=== PATIENT | female | born 1955 | race Caucasian/White ===

== ENCOUNTER 2020-05-07 08:00 | Inpatient (IN) | payer OTHER, MEDICARE ==
[2020-05-07] MEDS ORDERED: ACETAMINOPHEN 500 MG TABLET (FP) PO ONE (08:08)
[2020-05-07] MEDS ORDERED: ACETAMINOPHEN 500 MG TABLET (FP) ONE (08:12)
[2020-05-07 09:59] LABS: BASO % 0.7 % (0-2.0); EOS % 0.2 % (0-4.5); HEMATOCRIT 39.6 % (32.4-45.2); HEMOGLOBIN 13.3 GM/dl (10.7-15.3); LYMPH % 10.1 % (8-40); MCH 31.2 pg (25.7-33.7); MCHC 33.5 g/dl (32.0-36.0); MEAN PLT VOLUME 7.7 fl (7.5-11.1); MONO % 4.3 % (3.8-10.2); NEUT % 84.7 % (42.8-82.8); PLATELET COUNT 396 K/MM3 (134-434); RBC 4.25 M/mm3 (3.60-5.2); WHITE BLOOD COUNT 16.1 K/mm3 (4.0-10.8)
[2020-05-07 10:08] LABS: ACTIVATED PTT 25.7 SECONDS (25.2-36.5)
[2020-05-07 10:12] LABS: INR 1.1 (0.82-1.09); PROTHROMBIN TIME (PATIENT) 12.2 SEC (10.2-13.0)
[2020-05-07 10:45] LABS: EPITHELIAL CELLS MODERATE /hpf
[2020-05-07 10:46] LABS: ALBUMIN 4.1 g/dl (3.4-5.0); BILIRUBIN,TOTAL 0.6 mg/dl (0.2-1); CALCIUM 9.3 mg/dl (8.5-10); CREATININE 0.5 mg/dl (0.55-1.3); POTASSIUM 3.5 mmol/L (3.5-5.1); TOT PROT 7.3 g/dl (6.4-8.2)
[2020-05-07] MEDS: NICOTINE 21 MG/24 HOURS TOPICAL PATCH TD SCH ×2 (11:38→22:23)
[2020-05-07 15:13] VITALS: BMI 23.6
[2020-05-07] MEDS ORDERED: chlordiazePOXIDE HCL 25 MG CAPSULE PO PRN (15:30)
[2020-05-07] MEDS ORDERED: HYDROmorphone HCl 2 MG/ML VIAL IVPB PRN (15:58)
[2020-05-07] MEDS: ACETAMINOPHEN 325 MG TABLET (FP) PO PRN (17:48)
[2020-05-07] MEDS: METOPROLOL TARTRATE 50 MG TABLET (FP) PO SCH (21:52)
[2020-05-07] MEDS: HEPARIN NA (PORCINE) 5,000 UNITS/ML 1ML VIAL SQ SCH (21:53)
[2020-05-07] MEDS ORDERED: METOPROLOL TARTRATE 25 MG TABLET (FP) PO SCH (22:00)
[2020-05-07] MEDS: traMADol HCL 50 MG TABLET PO PRN (23:19)
[2020-05-08] MEDS: ACETAMINOPHEN 325 MG TABLET (FP) PO PRN ×2 (02:05→21:46)
[2020-05-08 09:33] LABS: ALBUMIN 3.2 g/dl (3.4-5.0); CALCIUM 8.8 mg/dL (8.5-10.1); MAGNESIUM 1.8 mg/dL (1.8-2.4)
[2020-05-08 09:35] LABS: CREATININE 0.5 mg/dL (0.55-1.3)
[2020-05-08 09:36] LABS: BASO % 0.8 % (0-2.0); BILIRUBIN,TOTAL 0.6 mg/dL (0.2-1); EOS % 1.6 % (0-4.5); HEMATOCRIT 36.1 % (32.4-45.2); HEMOGLOBIN 12.2 GM/dL (10.7-15.3); LYMPH % 16.3 % (8-40); MCH 31.3 pg (25.7-33.7); MCHC 33.9 g/dl (32.0-36.0); MEAN CELL VOLUME 92.4 fl (80-96); MEAN PLT VOLUME 8.1 fl (7.5-11.1); MONO % 5.7 % (3.8-10.2); NEUT % 75.6 % (42.8-82.8); PLATELET COUNT 323 K/MM3 (134-434); RBC 3.91 M/mm3 (3.60-5.2); RDW 14.6 % (11.6-15.6); TOT PROT 6.6 g/dl (6.4-8.2); WHITE BLOOD COUNT 11.9 K/mm3 (4.0-10.0)
[2020-05-08] MEDS: HEPARIN NA (PORCINE) 5,000 UNITS/ML 1ML VIAL SQ SCH ×2 (09:44→21:38)
[2020-05-08] MEDS: METOPROLOL TARTRATE 50 MG TABLET (FP) PO SCH ×2 (09:44→21:38)
[2020-05-08] MEDS: PANTOPRAZOLE 40 MG TABLET PO SCH (09:44)
[2020-05-08] MEDS: FOLIC ACID 1 MG TABLET (FP) PO SCH (09:44)
[2020-05-08] MEDS: amLODIPine BESYLATE 10 MG TABLET (FP) PO SCH (09:44)
[2020-05-08] MEDS: THIAMINE HCL 100 MG TABLET (FP) PO SCH (09:44)
[2020-05-08] MEDS: NICOTINE 21 MG/24 HOURS TOPICAL PATCH TD SCH (09:44)
[2020-05-08] MEDS: MULTIVITAMINS (DAILY MVI) TABLET (FP) PO SCH (09:44)
[2020-05-08 09:54] LABS: POTASSIUM 3.6 mmol/L (3.5-5.1)
[2020-05-08] MEDS ORDERED: NICOTINE 21 MG/24 HOURS TOPICAL PATCH TD SCH (10:00)
[2020-05-08] MEDS ORDERED: amLODIPine BESYLATE 5 MG TABLET (FP) PO SCH (10:00)
[2020-05-08] MEDS: traMADol HCL 50 MG TABLET PO PRN (11:23)
[2020-05-08 11:38] LABS: INR 0.97 (0.83-1.09)
[2020-05-09] MEDS: ACETAMINOPHEN 325 MG TABLET (FP) PO PRN ×2 (07:53→20:02)
[2020-05-09] MEDS: METOPROLOL TARTRATE 50 MG TABLET (FP) PO SCH ×2 (09:32→21:39)
[2020-05-09] MEDS: PANTOPRAZOLE 40 MG TABLET PO SCH (09:33)
[2020-05-09] MEDS: NICOTINE 21 MG/24 HOURS TOPICAL PATCH TD SCH (09:33)
[2020-05-09] MEDS: FOLIC ACID 1 MG TABLET (FP) PO SCH (09:33)
[2020-05-09] MEDS: amLODIPine BESYLATE 10 MG TABLET (FP) PO SCH (09:33)
[2020-05-09] MEDS: THIAMINE HCL 100 MG TABLET (FP) PO SCH (09:33)
[2020-05-09] MEDS: MULTIVITAMINS (DAILY MVI) TABLET (FP) PO SCH (09:33)
[2020-05-09] MEDS ORDERED: TRANEXAMIC ACID 1000 MG/10 ML VIAL ONE (13:33)
[2020-05-09] MEDS ORDERED: ceFAZolin SODIUM 1 GM VIAL ONE (13:33)
[2020-05-09] MEDS ORDERED: BUPIVACAINE LIPOSOME/PF (EXPAREL) 266 MG/20 ML VIAL ONE (14:27)
[2020-05-09] MEDS ORDERED: MIDAZOLAM HCL 2 MG/2 ML SINGLE DOSE VIAL ONE ×2 (14:27→15:02)
[2020-05-09] MEDS ORDERED: BUPIVACAINE HCL/PF 0.5% (5 MG/ML) 30 ML VIAL IJ ONE (14:27)
[2020-05-09] MEDS ORDERED: LACTATED RINGERS SOLUTION 1,000 ML IV SCH ×3 (15:30→17:21)
[2020-05-09] MEDS ORDERED: PROPOFOL 20 ML ONE ×8 (15:31→15:32)
[2020-05-09] MEDS ORDERED: PROMETHAZINE HCL 25 MG/1 ML VIAL IVPUSH PRN (17:02)
[2020-05-09] MEDS ORDERED: oxyCODONE HCL 5 MG TABLET PO PRN (17:02)
[2020-05-09] MEDS ORDERED: ONDANSETRON 4 MG/2 ML VIAL IVPUSH PRN (17:02)
[2020-05-09] MEDS ORDERED: ACETAMINOPHEN 325 MG TABLET (FP) PO PRN (17:21)
[2020-05-09] MEDS: traMADol HCL 50 MG TABLET PO PRN (20:01)
[2020-05-09] MEDS ORDERED: HYDROmorphone HCl 2 MG/ML VIAL IVPB PRN (22:21)
[2020-05-09] MEDS: CEFAZOLIN 1 GM/D5W 1 GM/50 ML BAG IVPB SCH (22:50)
[2020-05-09] MEDS ORDERED: CEFAZOLIN 1 GM/D5W 1 GM/50 ML BAG IVPB SCH (23:00)
[2020-05-10] MEDS: oxyCODONE HCL 5 MG TABLET PO PRN ×3 (05:39→18:13)
[2020-05-10] MEDS: ACETAMINOPHEN 325 MG TABLET (FP) PO PRN (05:40)
[2020-05-10] MEDS: CEFAZOLIN 1 GM/D5W 1 GM/50 ML BAG IVPB SCH (06:12)
[2020-05-10 08:15] LABS: HEMATOCRIT 32.8 % (32.4-45.2); HEMOGLOBIN 10.9 GM/dl (10.7-15.3); MCH 30.7 pg (25.7-33.7); MCHC 33.4 g/dl (32.0-36.0); MEAN PLT VOLUME 7.8 fl (7.5-11.1); PLATELET COUNT 287 K/MM3 (134-434); RBC 3.56 M/mm3 (3.60-5.2); RDW 13.2 % (11.6-15.6); WHITE BLOOD COUNT 13.9 K/mm3 (4.0-10.8)
[2020-05-10 08:22] LABS: BILIRUBIN,TOTAL 0.7 mg/dl (0.2-1); CALCIUM 8.7 mg/dl (8.5-10); CREATININE 0.5 mg/dl (0.55-1.3); MAGNESIUM 1.6 mg/dL (1.8-2.4); POTASSIUM 3.7 mmol/L (3.5-5.1); TOT PROT 6.1 g/dl (6.4-8.2)
[2020-05-10] MEDS ORDERED: HYDROmorphone HCL/PF 1 MG/ML VIAL IVPB PRN (08:28)
[2020-05-10 08:58] LABS: ADD RBC MORPHOLOGY YES
[2020-05-10] MEDS: THIAMINE HCL 100 MG TABLET (FP) PO SCH (10:08)
[2020-05-10] MEDS: NICOTINE 21 MG/24 HOURS TOPICAL PATCH TD SCH (10:08)
[2020-05-10] MEDS: MULTIVITAMINS (DAILY MVI) TABLET (FP) PO SCH (10:08)
[2020-05-10] MEDS: METOPROLOL TARTRATE 50 MG TABLET (FP) PO SCH ×2 (10:08→21:28)
[2020-05-10] MEDS: amLODIPine BESYLATE 10 MG TABLET (FP) PO SCH (10:08)
[2020-05-10] MEDS: PANTOPRAZOLE 40 MG TABLET PO SCH (10:08)
[2020-05-10] MEDS: FOLIC ACID 1 MG TABLET (FP) PO SCH (10:09)
[2020-05-10 10:25] LABS: PLATELET ESTIMATE ADEQUATE
[2020-05-10] MEDS ORDERED: MAGNESIUM SULF 50% (8.12 MEQ/2 ML-1 GM VIAL) IVPB ONE (10:36)
[2020-05-10] MEDS ORDERED: MAGNESIUM SULFATE IN WATER 2 GM/50 ML IVPB IVPB ONE (10:45)
[2020-05-11] MEDS: traMADol HCL 50 MG TABLET PO PRN (06:39)
[2020-05-11 08:23] LABS: ALBUMIN 2.8 g/dl (3.4-5.0); BASO % 0.4 % (0-2.0); BILIRUBIN,TOTAL 0.6 mg/dl (0.2-1); CALCIUM 8.7 mg/dl (8.5-10); CREATININE 0.4 mg/dl (0.55-1.3); EOS % 1.1 % (0-4.5); HEMATOCRIT 31.6 % (32.4-45.2); HEMOGLOBIN 10.5 GM/dl (10.7-15.3); LYMPH % 11.2 % (8-40); MAGNESIUM 1.9 mg/dL (1.8-2.4); MCH 30.6 pg (25.7-33.7); MCHC 33.3 g/dl (32.0-36.0); MEAN PLT VOLUME 7.4 fl (7.5-11.1); MONO % 7.6 % (3.8-10.2); NEUT % 79.7 % (42.8-82.8); PLATELET COUNT 281 K/MM3 (134-434); RBC 3.44 M/mm3 (3.60-5.2); RDW 13.3 % (11.6-15.6); WHITE BLOOD COUNT 11.2 K/mm3 (4.0-10.8)
[2020-05-11] MEDS: FOLIC ACID 1 MG TABLET (FP) PO SCH (09:27)
[2020-05-11] MEDS: NICOTINE 21 MG/24 HOURS TOPICAL PATCH TD SCH (09:28)
[2020-05-11] MEDS: METOPROLOL TARTRATE 50 MG TABLET (FP) PO SCH (09:28)
[2020-05-11] MEDS: MULTIVITAMINS (DAILY MVI) TABLET (FP) PO SCH (09:28)
[2020-05-11] MEDS: amLODIPine BESYLATE 10 MG TABLET (FP) PO SCH (09:28)
[2020-05-11] MEDS: PANTOPRAZOLE 40 MG TABLET PO SCH (09:28)
[2020-05-11] MEDS: THIAMINE HCL 100 MG TABLET (FP) PO SCH (09:28)
[2020-05-11 09:57] VITALS: BP 134/77; PULSE 94; TEMP 99.1
== END 2020-05-11 11:15 | DRG 494 ==
LOC: FER 08:00 → FM/S 09:37
PROVIDERS: ADMIT Internal Medicine; ATTEND Nurse Practitioner Acute Care
PROC: 0QSH04Z Reposition Left Tibia with Internal Fixation Device, Open Approach (ICD-10-PCS; 2020-05-09)
PROC: 0QSK04Z Reposition Left Fibula with Internal Fixation Device, Open Approach (ICD-10-PCS; principal; 2020-05-09 15:43)
DX: S82.852A Displaced trimalleolar fracture of left lower leg, initial encounter for closed fracture (principal); I10 Essential (primary) hypertension; E78.5 Hyperlipidemia, unspecified; F10.10 Alcohol abuse, uncomplicated; D72.829 Elevated white blood cell count, unspecified; F17.210 Nicotine dependence, cigarettes, uncomplicated; W10.9XXA Fall (on) (from) unspecified stairs and steps, initial encounter; Y93.89 Activity, other specified; Y92.098 Other place in other non-institutional residence as the place of occurrence of the external cause; Y99.8 Other external cause status
CPT/HCPCS: 36415; 71045-TC-FY; 73590-TC-LT-FY; 73610-TC-LT-FY; 73630-TC-LT; 73700-TC-RT; 80053; 81003; 81015; 83735; 85025; 85610; 85730; 86850; 86900; 86901; 87086; 93005; 94760; 97116-GP; 97162-GP; 99285-25; C9803; J1644; U0003

== ENCOUNTER 2021-05-22 10:59 | Inpatient (IN) | payer OTHER, MEDICARE ==
[2021-05-22] MEDS ORDERED: SODIUM CHLORIDE IV ONE (11:14)
[2021-05-22] MEDS ORDERED: ACETAMINOPHEN INJECTION 100 ML IVPB ONE (11:16)
[2021-05-22] MEDS ORDERED: VANCOMYCIN 1 GM in D5W (PRE-DOCKED) 1,000 MG/250 ML IVPB ONE (11:21)
[2021-05-22] MEDS ORDERED: PIPERACILLIN/TAZOB 4.5 GM 4.5 GM in DEXTROSE 5%-WATER 100 ML IVPB ONE (11:21)
[2021-05-22] MEDS ORDERED: ACETAMINOPHEN 1000 MG/100 ML BAG IVPB ONE ×3 (11:21→21:32)
[2021-05-22] MEDS ORDERED: CEFTRIAXONE 1 GM in DEXTROSE 5%-WATER - 100 ML IVPB ONE ×2 (11:23→11:24)
[2021-05-22] MEDS ORDERED: AZITHROMYCIN IVPB 500 MG in DEXTROSE 5%-WATER - 250 ML IVPB ONE ×2 (11:23→11:24)
[2021-05-22] MEDS ORDERED: PANTOPRAZOLE SODIUM 40 MG VIAL IVPUSH ONE (11:34)
[2021-05-22] MEDS ORDERED: OCTREOTIDE ACETATE 50 MCG/1 ML - 1 ML VIAL IVPUSH ONE (11:35)
[2021-05-22 11:52] LABS: VENOUS BASE EXCESS -3.1 mmol/L (-2-2); VENOUS O2 SATURATION 29.3 % (70-80); VENOUS PCO2 30.7 mmHg (38-52); VENOUS PH 7.432 (7.310-7.410)
[2021-05-22] MEDS ORDERED: CEFTRIAXONE 1 GM/50 ML BAG ONE (11:52)
[2021-05-22] MEDS ORDERED: PANTOPRAZOLE SODIUM 40 MG VIAL ONE ×2 (11:52→15:51)
[2021-05-22] MEDS ORDERED: OCTREOTIDE ACETATE 500 MCG/1 ML - 1 ML VIAL ONE (11:53)
[2021-05-22 12:07] LABS: HEMATOCRIT 42.1 % (32.4-45.2); HEMOGLOBIN 14.5 GM/dL (10.7-15.3); MCH 32.8 pg (25.7-33.7); MCHC 34.5 g/dl (32.0-36.0); MEAN CELL VOLUME 95.1 fl (80-96); MEAN PLT VOLUME 9.4 fl (7.5-11.1); RBC 4.42 M/mm3 (3.60-5.2); RDW 14.3 % (11.6-15.6)
[2021-05-22 12:17] LABS: INR 1.25 (0.83-1.09); PROTHROMBIN TIME (PATIENT) 14.4 SEC (9.7-13.0)
[2021-05-22 12:19] LABS: ACTIVATED PTT 32.3 SECONDS (25.2-36.5)
[2021-05-22 12:37] LABS: PLATELET COUNT 85 10^3/uL (134-434); WHITE BLOOD COUNT 1.2 K/mm3 (4.0-10.0)
[2021-05-22 12:51] LABS: EPI CELLS 27 /uL (0-25.1); HYALINE CASTS 8 /uL (0-3.1); URINE APPEARANCE CLOUDY; URINE BACTERIA >9,000 /uL (0-1359); URINE BILIRUBIN 1+ (NEGATIVE); URINE COLOR DK YELLOW; URINE GLUCOSE (UA) NEGATIVE (NEGATIVE); URINE KETONE 1+ (NEGATIVE); URINE LEUK ESTERASE NEGATIVE (NEGATIVE); URINE NITRITE NEGATIVE (NEGATIVE); URINE PROTEIN 3+ (NEGATIVE); URINE RBC 24 /uL (0-23.9); URINE WBC 8 /uL (0-25.8)
[2021-05-22] MEDS ORDERED: AZITHROMYCIN IVPB 500 MG/250 ML BAG IVPB ONE (12:55)
[2021-05-22 13:05] LABS: LACTIC ACID 5.8 mmol/L (0.4-2.0)
[2021-05-22] MEDS ORDERED: ONDANSETRON 4 MG/2 ML VIAL IVPUSH ONE (13:14)
[2021-05-22 13:49] LABS: CALCIUM 8.8 mg/dL (8.5-10.1)
[2021-05-22 13:50] LABS: ALBUMIN 2.7 g/dl (3.4-5.0); BLOOD UREA NITROGEN 20.4 mg/dL (7-18)
[2021-05-22 13:53] LABS: CREATININE 1.2 mg/dL (0.55-1.3)
[2021-05-22 13:55] LABS: TOT PROT 6.2 g/dl (6.4-8.2)
[2021-05-22] MEDS: KCL 10 MEQ IVPB 10 MEQ/100 ML INFUS.BAG IVPB SCH ×3 (14:30→17:59)
[2021-05-22] MEDS ORDERED: SODIUM CHLORIDE 1,000 ML IV STA (15:24)
[2021-05-22] MEDS ORDERED: ACETAMINOPHEN 1000 MG/100 ML BAG IVPB PRN (15:26)
[2021-05-22 15:58] LABS: HEMATOCRIT 38.7 % (32.4-45.2); HEMOGLOBIN 13.3 GM/dL (10.7-15.3); MCH 32.7 pg (25.7-33.7); MCHC 34.3 g/dl (32.0-36.0); MEAN CELL VOLUME 95.3 fl (80-96); MEAN PLT VOLUME 8.8 fl (7.5-11.1); PLATELET COUNT 55 10^3/uL (134-434); RBC 4.06 M/mm3 (3.60-5.2); RDW 14.4 % (11.6-15.6)
[2021-05-22 16:09] LABS: MAGNESIUM 1.1 mg/dL (1.8-2.4)
[2021-05-22 16:18] LABS: WHITE BLOOD COUNT 0.9 K/mm3 (4.0-10.0)
[2021-05-22] MEDS ORDERED: MAGNESIUM SULF 50% (8.12 MEQ/2 ML-1 GM VIAL) IVPB ONE (16:23)
[2021-05-22] MEDS ORDERED: PANTOPRAZOLE SODIUM 80 MG in SODIUM CHLORIDE 100 ML IVPB SCH (16:30)
[2021-05-22] MEDS ORDERED: SODIUM CHLORIDE 1,000 ML IV SCH (16:45)
[2021-05-22] MEDS ORDERED: RAPID SEQUENCE INTUBATION KIT NR ONE (17:07)
[2021-05-22] MEDS ORDERED: KCL 10 MEQ IVPB 10 MEQ/100 ML INFUS.BAG IVPB ONE (17:46)
[2021-05-22] MEDS ORDERED: MAGNESIUM SULFATE IN WATER 2 GM/50 ML IVPB IVPB ONE (17:46)
[2021-05-22] MEDS ORDERED: PIPERACILLIN/TAZOB 3.375 GM 3.375 GM in DEXTROSE 5%-WATER - 50 ML IVPB SCH (18:00)
[2021-05-22] MEDS ORDERED: PROPOFOL 1,000,000 MCG/100 ML VIAL IVPB SCH (18:00)
[2021-05-22] MEDS ORDERED: ROCURONIUM BROMIDE 50 MG/5 ML VIAL IV ONE (18:00)
[2021-05-22] MEDS ORDERED: ETOMIDATE 40 MG/20 ML VIAL IVPUSH ONE (18:00)
[2021-05-22] MEDS ORDERED: FENTANYL NS IVPB 500 MCG/100 ML BAG IVPB SCH (18:00)
[2021-05-22] MEDS ORDERED: PROPOFOL 0 MCG/0 ML VIAL ONE (18:39)
[2021-05-22] MEDS ORDERED: FENTANYL NS IVPB 500 MCG/100 ML BAG IVPB ONE (18:39)
[2021-05-22] MEDS ORDERED: PIPERACILLIN/TAZOB 3.375 GM 3.375 GM/50 ML BAG IVPB ONE (18:39)
[2021-05-22] MEDS ORDERED: LACTATED RINGERS SOLUTION 1000 ML INFUS.BAG IV ONE (18:45)
[2021-05-22] MEDS: FENTANYL NS IVPB 500 MCG/100 ML BAG IVPB SCH (20:00)
[2021-05-22 20:05] LABS: LACTIC ACID 6.1 mmol/L (0.4-2.0)
[2021-05-22] MEDS: NOREPINEPHRINE D5W PREMIX 16,000 MCG/500 ML BAG IVPB SCH (20:30)
[2021-05-22 21:05] LABS: PLATELET ESTIMATE MOD DECREASED
[2021-05-22] MEDS: CHLORHEXIDINE GLUCONATE 4% CLEANSER FOR DECOLONIZATION TP SCH (22:00)
[2021-05-22] MEDS: LACTATED RINGERS SOLUTION 1,000 ML/1,000 ML INFUS.BAG IV SCH (22:00)
[2021-05-22] MEDS: MUPIROCIN 2% TOPICAL OINTMENT FOR DECOLONIZATION NS SCH (22:00)
[2021-05-22] MEDS ORDERED: MIDAZOLAM IN 0.9 % SOD.CHLORID 1 MG/1 ML PLAST..BAG ONE (22:07)
[2021-05-22] MEDS: MIDAZOLAM IN 0.9 % SOD.CHLORID 100 MG/100 ML PLAST..BAG IVPB SCH (22:20)
[2021-05-22 22:37] LABS: HEMATOCRIT 35.5 % (32.4-45.2); HEMOGLOBIN 12.1 GM/dL (10.7-15.3); MCH 33.2 pg (25.7-33.7); MCHC 34.1 g/dl (32.0-36.0); MEAN CELL VOLUME 97.6 fl (80-96); MEAN PLT VOLUME 9.6 fl (7.5-11.1); PLATELET COUNT 51 10^3/uL (134-434); RBC 3.64 M/mm3 (3.60-5.2); RDW 14.8 % (11.6-15.6)
[2021-05-22 22:45] LABS: WHITE BLOOD COUNT 1.2 K/mm3 (4.0-10.0)
[2021-05-22 22:52] LABS: CHLORIDE 105 mmol/L (98-107); SODIUM 138 mmol/L (136-145)
[2021-05-22 22:54] LABS: GLUCOSE,RANDOM 57 mg/dL (74-106)
[2021-05-22 22:55] LABS: BLOOD UREA NITROGEN 22.7 mg/dL (7-18); CO2 20 mmol/L (21-32); MAGNESIUM 1.6 mg/dL (1.8-2.4)
[2021-05-22 22:57] LABS: SGPT/ALT 45 U/L (13-61)
[2021-05-22 22:58] LABS: CREATININE 1.2 mg/dL (0.55-1.3); PHOSPHOROUS 5.4 mg/dL (2.5-4.9); SGOT/AST 127 U/L (15-37)
[2021-05-22 22:59] LABS: BILIRUBIN,TOTAL 1.3 mg/dL (0.2-1); TOT PROT 4.5 g/dl (6.4-8.2)
[2021-05-22 23:00] LABS: ALK PHOS 15 U/L (45-117); LACTIC ACID 3.7 mmol/L (0.4-2.0)
[2021-05-22 23:01] LABS: ALBUMIN 1.9 g/dl (3.4-5.0); ANION GAP 13 MMOL/L (8-16); CALCIUM 7.2 mg/dL (8.5-10.1)
[2021-05-22] MEDS: PROPOFOL 1,000,000 MCG/100 ML VIAL IVPB SCH (23:40)
[2021-05-22] MEDS ORDERED: POTASSIUM CHLORIDE 20 MEQ PREMIX IVPB 100 ML IVPB ONE (23:47)
[2021-05-23] MEDS ORDERED: PIPERACILLIN/TAZOBACTAM 3.375 GM VIAL IVPB ONE ×2 (01:19→08:57)
[2021-05-23] MEDS ORDERED: DEXTROSE 5%-WATER - 50 ML IVPB ONE ×2 (01:19→08:58)
[2021-05-23] MEDS: PIPERACILLIN/TAZOB 3.375 GM 3.375 GM in DEXTROSE 5%-WATER - 50 ML IVPB SCH ×3 (01:20→14:40)
[2021-05-23] MEDS: VASOPRESSIN 40 UNITS/100 ML BAG IV SCH ×2 (01:20→17:28)
[2021-05-23] MEDS: FENTANYL NS IVPB 500 MCG/100 ML BAG IVPB SCH ×3 (01:30→10:50)
[2021-05-23] MEDS: HYDROCORTISONE SOD SUCCINATE 100 MG/2 ML VIAL IVPB SCH ×4 (02:16→21:55)
[2021-05-23] MEDS ORDERED: PANTOPRAZOLE SODIUM 80 MG in SODIUM CHLORIDE 100 ML IVPB SCH (02:30)
[2021-05-23] MEDS ORDERED: PANTOPRAZOLE SODIUM 160 MG in SODIUM CHLORIDE 290 ML IVPB SCH (02:30)
[2021-05-23] MEDS: ACETAMINOPHEN 1000 MG/100 ML BAG IVPB PRN ×2 (03:37→14:09)
[2021-05-23 07:43] LABS: INR 1.24 (0.83-1.09); PROTHROMBIN TIME (PATIENT) 14.3 SEC (9.7-13.0)
[2021-05-23 07:56] LABS: HEMATOCRIT 37.3 % (32.4-45.2); HEMOGLOBIN 12.9 GM/dL (10.7-15.3); MCH 33.9 pg (25.7-33.7); MCHC 34.6 g/dl (32.0-36.0); MEAN CELL VOLUME 98.2 fl (80-96); PLATELET COUNT 47 10^3/uL (134-434); RDW 14.9 % (11.6-15.6)
[2021-05-23 07:58] LABS: WHITE BLOOD COUNT 1.3 K/mm3 (4.0-10.0)
[2021-05-23 08:06] LABS: CALCIUM 7.1 mg/dL (8.5-10.1); MAGNESIUM 1.8 mg/dL (1.8-2.4)
[2021-05-23 08:07] LABS: BLOOD UREA NITROGEN 22.9 mg/dL (7-18)
[2021-05-23 08:08] LABS: ALBUMIN 1.8 g/dl (3.4-5.0); CREATININE 1.1 mg/dL (0.55-1.3)
[2021-05-23 08:10] LABS: TOT PROT 4.7 g/dl (6.4-8.2)
[2021-05-23 08:13] LABS: BILIRUBIN,TOTAL 2.1 mg/dL (0.2-1)
[2021-05-23] MEDS ORDERED: DEXTROSE 50%-WATER - 25 GM/50 ML VIAL IVPUSH ONE (08:36)
[2021-05-23] MEDS ORDERED: DEXTROSE 10%-WATER - 250 ML IV ONE (08:45)
[2021-05-23] MEDS ORDERED: DEXTROSE 10%-WATER - 1,000 ML IV SCH (08:45)
[2021-05-23] MEDS ORDERED: DEXTROSE 70%-WATER - 35 ML, WATER FOR INJ,STERILE 15 ML IV ONE (09:00)
[2021-05-23] MEDS: MUPIROCIN 2% TOPICAL OINTMENT FOR DECOLONIZATION NS SCH ×2 (09:03→22:06)
[2021-05-23] MEDS: FLUDROCORTISONE ACETATE 0.1 MG TABLET (FP) PO SCH (09:05)
[2021-05-23] MEDS ORDERED: FOLIC ACID INJECTION - 1 MG, THIAMINE HCL 100 MG, MULTIVIT INJECTION ADULT 10 ML in SOD... IVPB ONE (09:19)
[2021-05-23 09:46] LABS: ACTIVATED PTT 36.7 SECONDS (25.2-36.5)
[2021-05-23] MEDS ORDERED: CEFTRIAXONE 2 GM-D5W BAG 2 GM/50 ML BAG IVPB SCH (10:00)
[2021-05-23] MEDS ORDERED: DEXTROSE 5%-WATER 100 ML IVPB ONE ×2 (10:59→17:25)
[2021-05-23] MEDS ORDERED: MEROPENEM 1 GM VIAL (RESTRICTED TO ID) IVPB ONE ×2 (10:59→17:25)
[2021-05-23] MEDS: MEROPENEM 1 GM in DEXTROSE 5%-WATER 100 ML IVPB SCH ×2 (11:01→17:26)
[2021-05-23] MEDS: THIAMINE HCL 200 MG/2 ML VIAL IVPB SCH (11:02)
[2021-05-23] MEDS ORDERED: LACTATED RINGERS SOLUTION 1000 ML INFUS.BAG IV ONE (11:06)
[2021-05-23 12:45] LABS: ANISOCYTOSIS 1+; MACROCYTOSIS 1+; TARGET CELLS 1+
[2021-05-23 12:50] LABS: PLATELET ESTIMATE DECREASED
[2021-05-23] MEDS: VANCOMYCIN 1 GRAM (PRE-DOCKED) 1,000 MG/250 ML BAG IVPB SCH (13:27)
[2021-05-23] MEDS: NOREPINEPHRINE D5W PREMIX 16,000 MCG/500 ML BAG IVPB SCH (14:49)
[2021-05-23] MEDS: MIDAZOLAM IN 0.9 % SOD.CHLORID 100 MG/100 ML PLAST..BAG IVPB SCH (14:50)
[2021-05-23 15:20] LABS: BILIRUBIN,DIRECT 1.1 mg/dL (0.0-0.2)
[2021-05-23 21:40] LABS: HEMATOCRIT 37.8 % (32.4-45.2); HEMOGLOBIN 12.6 GM/dL (10.7-15.3); MCH 33.1 pg (25.7-33.7); MCHC 33.4 g/dl (32.0-36.0); MEAN PLT VOLUME 9.6 fl (7.5-11.1); PLATELET COUNT 43 10^3/uL (134-434); RBC 3.82 M/mm3 (3.60-5.2); RDW 15.1 % (11.6-15.6); WHITE BLOOD COUNT 6.3 K/mm3 (4.0-10.0)
[2021-05-23 22:02] LABS: INR 1.26 (0.83-1.09); PROTHROMBIN TIME (PATIENT) 14.5 SEC (9.7-13.0)
[2021-05-23 22:04] LABS: ACTIVATED PTT 37.5 SECONDS (25.2-36.5)
[2021-05-23] MEDS: LACTATED RINGERS SOLUTION 1,000 ML/1,000 ML INFUS.BAG IV SCH (22:06)
[2021-05-23] MEDS: PROPOFOL 1,000,000 MCG/100 ML VIAL IVPB SCH (22:06)
[2021-05-23] MEDS: CHLORHEXIDINE GLUCONATE 4% CLEANSER FOR DECOLONIZATION TP SCH (22:06)
[2021-05-23 23:21] LABS: ANISOCYTOSIS 1+; MACROCYTOSIS 1+; TEAR DROP CELLS 1+; TOXIC GRANULATION 1+
[2021-05-23 23:22] LABS: PLATELET ESTIMATE DECREASED
[2021-05-24] MEDS: VASOPRESSIN 40 UNITS/100 ML BAG IV SCH ×2 (01:26→08:15)
[2021-05-24] MEDS: NOREPINEPHRINE D5W PREMIX 16,000 MCG/500 ML BAG IVPB SCH ×2 (01:26→21:04)
[2021-05-24] MEDS: MIDAZOLAM IN 0.9 % SOD.CHLORID 100 MG/100 ML PLAST..BAG IVPB SCH (01:26)
[2021-05-24] MEDS: PROPOFOL 1,000,000 MCG/100 ML VIAL IVPB SCH (01:27)
[2021-05-24] MEDS ORDERED: DEXTROSE 5%-WATER 100 ML IVPB ONE ×3 (02:20→17:00)
[2021-05-24] MEDS ORDERED: MEROPENEM 1 GM VIAL (RESTRICTED TO ID) IVPB ONE ×3 (02:20→17:00)
[2021-05-24] MEDS: HYDROCORTISONE SOD SUCCINATE 100 MG/2 ML VIAL IVPB SCH ×4 (02:21→21:02)
[2021-05-24] MEDS: MEROPENEM 1 GM in DEXTROSE 5%-WATER 100 ML IVPB SCH ×3 (02:21→17:05)
[2021-05-24 07:23] LABS: HEMATOCRIT 39.1 % (32.4-45.2); HEMOGLOBIN 12.9 GM/dL (10.7-15.3); MCH 32.9 pg (25.7-33.7); MCHC 33.1 g/dl (32.0-36.0); MEAN CELL VOLUME 99.4 fl (80-96); MEAN PLT VOLUME 9.2 fl (7.5-11.1); RBC 3.93 M/mm3 (3.60-5.2); RDW 15.6 % (11.6-15.6); WHITE BLOOD COUNT 9.8 K/mm3 (4.0-10.0)
[2021-05-24 07:26] LABS: PLATELET COUNT 27 10^3/uL (134-434)
[2021-05-24] MEDS ORDERED: VASOPRESSIN 20 UNITS/ML VIAL IV ONE ×2 (07:57→07:59)
[2021-05-24] MEDS: LACTATED RINGERS SOLUTION 1,000 ML/1,000 ML INFUS.BAG IV SCH ×2 (08:31→21:03)
[2021-05-24] MEDS: PANTOPRAZOLE SODIUM 40 MG VIAL IVPUSH SCH (09:37)
[2021-05-24] MEDS: MUPIROCIN 2% TOPICAL OINTMENT FOR DECOLONIZATION NS SCH ×2 (09:38→21:03)
[2021-05-24] MEDS: FLUDROCORTISONE ACETATE 0.1 MG TABLET (FP) PO SCH (09:39)
[2021-05-24 10:14] LABS: ANISOCYTOSIS 0; MACROCYTOSIS 0
[2021-05-24] MEDS: THIAMINE HCL 200 MG/2 ML VIAL IVPB SCH (10:39)
[2021-05-24 11:21] LABS: PLATELET ESTIMATE DECREASED
[2021-05-24 11:24] LABS: TOXIC GRANULATION 2+
[2021-05-24 11:53] LABS: BLOOD UREA NITROGEN 29.5 mg/dL (7-18); CHLORIDE 107 mmol/L (98-107); CREATININE 1.2 mg/dL (0.55-1.3); GLUCOSE,RANDOM 110 mg/dL (74-106); SODIUM 136 mmol/L (136-145)
[2021-05-24 11:54] LABS: ALBUMIN 1.5 g/dl (3.4-5.0); ALK PHOS 58 U/L (45-117); BILIRUBIN,TOTAL 2.4 mg/dL (0.2-1); CALCIUM 7.6 mg/dL (8.5-10.1); CO2 19 mmol/L (21-32); MAGNESIUM 1.9 mg/dL (1.8-2.4); PHOSPHOROUS 5.5 mg/dL (2.5-4.9); SGOT/AST 72 U/L (15-37); SGPT/ALT 34 U/L (13-61); TOT PROT 4.5 g/dl (6.4-8.2)
[2021-05-24] MEDS: VANCOMYCIN 1 GRAM (PRE-DOCKED) 1,000 MG/250 ML BAG IVPB SCH (13:50)
[2021-05-24] MEDS ORDERED: ACETAMINOPHEN 1000 MG/100 ML BAG IVPB PRN ×2 (14:28→14:55)
[2021-05-24] MEDS ORDERED: ACETAMINOPHEN INJECTION 100 ML IVPB ONE (14:30)
[2021-05-24 14:50] VITALS: BMI 20.7
[2021-05-24] MEDS ORDERED: MAGNESIUM SULF 50% (8.12 MEQ/2 ML-1 GM VIAL) IVPB ONE (14:57)
[2021-05-24 19:58] LABS: HEMATOCRIT 37.1 % (32.4-45.2); HEMOGLOBIN 12.1 GM/dL (10.7-15.3); MCH 31.9 pg (25.7-33.7); MCHC 32.7 g/dl (32.0-36.0); MEAN CELL VOLUME 97.5 fl (80-96); MEAN PLT VOLUME 9.7 fl (7.5-11.1); RDW 14.8 % (11.6-15.6); WHITE BLOOD COUNT 16.4 K/mm3 (4.0-10.0)
[2021-05-24 20:00] LABS: PLATELET COUNT 34 10^3/uL (134-434)
[2021-05-24 20:11] LABS: INR 0.95 (0.83-1.09); PROTHROMBIN TIME (PATIENT) 10.9 SEC (9.7-13.0)
[2021-05-24] MEDS: CHLORHEXIDINE GLUCONATE 4% CLEANSER FOR DECOLONIZATION TP SCH (21:03)
[2021-05-25] MEDS: VASOPRESSIN 40 UNITS/100 ML BAG IV SCH (02:05)
[2021-05-25] MEDS: MIDAZOLAM IN 0.9 % SOD.CHLORID 100 MG/100 ML PLAST..BAG IVPB SCH (02:29)
[2021-05-25] MEDS: LACTATED RINGERS SOLUTION 1,000 ML/1,000 ML INFUS.BAG IV SCH (02:29)
[2021-05-25] MEDS: PROPOFOL 1,000,000 MCG/100 ML VIAL IVPB SCH (02:29)
[2021-05-25] MEDS: HYDROCORTISONE SOD SUCCINATE 100 MG/2 ML VIAL IVPB SCH ×2 (02:29→10:00)
[2021-05-25] MEDS: MEROPENEM 1 GM in DEXTROSE 5%-WATER 100 ML IVPB SCH ×2 (02:30→10:00)
[2021-05-25 07:41] LABS: INR 0.88 (0.83-1.09); PROTHROMBIN TIME (PATIENT) 10.1 SEC (9.7-13.0)
[2021-05-25 07:50] LABS: HEMATOCRIT 35.6 % (32.4-45.2); HEMOGLOBIN 11.8 GM/dL (10.7-15.3); MCH 32.3 pg (25.7-33.7); MCHC 33.1 g/dl (32.0-36.0); MEAN CELL VOLUME 97.4 fl (80-96); MEAN PLT VOLUME 12.2 fl (7.5-11.1); RBC 3.66 M/mm3 (3.60-5.2); WHITE BLOOD COUNT 23.1 K/mm3 (4.0-10.0)
[2021-05-25 07:54] LABS: PLATELET COUNT 36 10^3/uL (134-434)
[2021-05-25 07:59] VITALS: TEMP 98.8
[2021-05-25 08:41] LABS: CALCIUM 7.7 mg/dL (8.5-10.1)
[2021-05-25 08:42] LABS: ALBUMIN 1.5 g/dl (3.4-5.0)
[2021-05-25 08:45] LABS: CREATININE 1.2 mg/dL (0.55-1.3)
[2021-05-25 08:46] LABS: BILIRUBIN,TOTAL 2.3 mg/dL (0.2-1); TOT PROT 4.5 g/dl (6.4-8.2)
[2021-05-25] MEDS: FLUDROCORTISONE ACETATE 0.1 MG TABLET (FP) PO SCH (10:00)
[2021-05-25] MEDS: MUPIROCIN 2% TOPICAL OINTMENT FOR DECOLONIZATION NS SCH (10:00)
[2021-05-25] MEDS ORDERED: MEROPENEM 1 GM VIAL (RESTRICTED TO ID) IVPB ONE (10:18)
[2021-05-25] MEDS ORDERED: DEXTROSE 5%-WATER 100 ML IVPB ONE (10:19)
[2021-05-25] MEDS: PANTOPRAZOLE SODIUM 40 MG VIAL IVPUSH SCH (10:28)
[2021-05-25] MEDS: THIAMINE HCL 200 MG/2 ML VIAL IVPB SCH (10:31)
[2021-05-25 12:33] LABS: ARTERIAL BLD GAS O2 SATURATION 93.3 % (95-98); ARTERIAL BLOOD GAS BASE EXCESS -8.8 mmol/L (-2-2); ARTERIAL BLOOD GAS PO2 73.3 mmHg (80-100); ARTERIAL BLOOD GAS pH 7.294 (7.350-7.450)
[2021-05-25 12:35] LABS: ALLENS TEST POSITIVE; VENT MODE AC; VENT RATE 18
[2021-05-25] MEDS ORDERED: MORPHINE SULFATE/0.9% NACL/PF 100 MG/100 ML BAG IVPB SCH (13:15)
[2021-05-25] MEDS ORDERED: morphine SULFATE 4 MG/ML VIAL IVPUSH ONE (14:00)
[2021-05-25] MEDS ORDERED: LORazepam 2 MG/ML SDV VIAL IVPUSH ONE (14:23)
[2021-05-25] MEDS ORDERED: AMPICILLIN NA/SULBACTAM NA 3 GM in SODIUM CHLORIDE 100 ML IVPB SCH (18:00)
[2021-05-25 19:30] VITALS: BP 89/68; PULSE 95
== END 2021-05-25 22:30 | disposition expired | DRG 871 ==
LOC: JER 10:59 → JERBED 12:57 → JICU 21:16
PROVIDERS: ADMIT Internal Medicine; ATTEND Internal Medicine
PROC: 5A1945Z Respiratory Ventilation, 24-96 Consecutive Hours (ICD-10-PCS; principal; 2021-05-22)
PROC: 0BH17EZ Insertion of Endotracheal Airway into Trachea, Via Natural or Artificial Opening (ICD-10-PCS; 2021-05-22)
PROC: 05HM33Z Insertion of Infusion Device into Right Internal Jugular Vein, Percutaneous Approach (ICD-10-PCS; 2021-05-22)
PROC: 30233R1 Transfusion of Nonautologous Platelets into Peripheral Vein, Percutaneous Approach (ICD-10-PCS; 2021-05-24)
DX: A41.59 Other Gram-negative sepsis (principal); J96.01 Acute respiratory failure with hypoxia; R65.21 Severe sepsis with septic shock; J15.0 Pneumonia due to Klebsiella pneumoniae; J69.0 Pneumonitis due to inhalation of food and vomit; G93.41 Metabolic encephalopathy; I24.8 Other forms of acute ischemic heart disease; M62.82 Rhabdomyolysis; E87.2 Acidosis; K92.0 Hematemesis; N39.0 Urinary tract infection, site not specified; K62.5 Hemorrhage of anus and rectum; J98.11 Atelectasis; D69.6 Thrombocytopenia, unspecified; D70.9 Neutropenia, unspecified; I95.9 Hypotension, unspecified; K21.9 Gastro-esophageal reflux disease without esophagitis; I10 Essential (primary) hypertension; E78.5 Hyperlipidemia, unspecified; F17.210 Nicotine dependence, cigarettes, uncomplicated; D64.9 Anemia, unspecified
CPT/HCPCS: 36415; 36430; 36600; 70450-TC; 71045-TC-FY; 71250-TC; 72125-TC; 76700-TC; 80053; 80061; 80076; 81003; 82140; 82272; 82550; 82553; 82803; 82962; 83540; 83550; 83605; 83735; 84100; 84484; 85025; 85027; 85379; 85384; 85610; 85730; 86850; 86900; 86901; 87040; 87070; 87086; 87186; 87205; 87804; 93005; 93010; 93306-TC; 94002; 99291; 99292; C9803; J3490; P9034; U0003; U0005